=== PATIENT | female | born 1955 | race Caucasian/White ===

== ENCOUNTER → 2020-04-18 | Outpatient (CLI) | payer MEDICARE ==
[~2020-04-18] MED LIST: ASPI-496 PO; LORA10TA75 PO; RED600CA2 PO; Thyroid Med PO
[2020-04-18 13:41] LABS: BASOPHILS # (AUTO) 0.03 x10^3/uL (0-0.1); BASOPHILS % (AUTO) 1 % (0-1); EOSINOPHILS # (AUTO) 0.13 x10^3/uL (0-0.4); EOSINOPHILS % (AUTO) 2 % (1-7); LYMPHOCYTES % (AUTO) 28 % (22-44); MD NO; MEAN CORPUSCULAR HGB CONC 32.5 g/dL (32.4-35.8); MEAN CORPUSCULAR VOLUME 92.3 fL (80-100); MEAN PLATELET VOLUME 7.2 fL (7.4-10.4); MONOCYTES # (AUTO) 0.55 x10^3/uL (0.2-0.8); MONOCYTES % (AUTO) 8 % (2-9); NEUTROPHILS % (AUTO) 62 % (42-75); PLATELET COUNT 174 x10^3/uL (130-400); RED CELL DISTRIBUTION WIDTH 14.6 % (9.6-15.2)
== END | disposition home or self-care (01) ==
LOC: STAR 12:46
PROVIDERS: ATTEND Obstetrics & Gynecology
DX: Z01.818 Encounter for other preprocedural examination (principal); Z11.59 Encounter for screening for other viral diseases; N81.2 Incomplete uterovaginal prolapse
CPT/HCPCS: 36415; 84703; 85025; 87635; 93005

== ENCOUNTER 2020-04-22 09:09 | Day surgery (SDC) | payer MEDICARE ==
[~2020-04-22] VITALS: Ht 163.8 cm; Wt 92.6 kg
[~2020-04-22 09:09] MED LIST changes: +BUPIVACAINE/PF-EPI 0.25% 1:200K ONE
[2020-04-22] MEDS ORDERED: LACTATED RINGERS 1,000 ML IV SCH (09:57)
[2020-04-22 09:59] VITALS: BP 138/84
[2020-04-22] MEDS ORDERED: CHLORHEXIDINE 15 ML UDC MM ONE (10:00)
[2020-04-22] MEDS ORDERED: MIDAZOLAM 1 MG/ML, 2ML ONE (10:10)
[2020-04-22] MEDS ORDERED: FENTANYL PF 250 MCG/5ML ONE (10:11)
[2020-04-22] MEDS ORDERED: PROPOFOL 10 MG/ML, 20ML ONE (10:12)
[2020-04-22] MEDS ORDERED: LIDOCAINE-MPF 2% ,5ML ONE (10:16)
[2020-04-22] MEDS ORDERED: DEXAMETHASONE 4 MG/ML, 1ML ONE ×2 (10:16)
[2020-04-22] MEDS ORDERED: ROCURONIUM 10MG/ML,5ML ONE (10:16)
[2020-04-22] MEDS ORDERED: ONDANSETRON 2MG/ML, 2ML ONE (10:17)
[2020-04-22] MEDS ORDERED: BUPIVACAINE/PF-EPI 0.25% 1:200K ONE (11:09)
[2020-04-22] MEDS ORDERED: FLUORESCEIN SODIUM 500 MG/5 ML ONE (11:15)
[2020-04-22] MEDS ORDERED: ESTROGENS CONJUGATED VAG CRM 0.625MG/1G, 30GM ONE (11:15)
[2020-04-22] MEDS ORDERED: BACITRACIN 50,000 UNIT ONE (11:16)
[2020-04-22] MEDS ORDERED: GENTAMICIN 80 MG/2 ML ONE (11:18)
[2020-04-22] MEDS ORDERED: VANCOMYCIN 1,000 MG ONE (11:18)
[2020-04-22] MEDS ORDERED: KETOROLAC 30 MG/1 ML ONE (11:29)
[2020-04-22] MEDS ORDERED: SUGAMMADEX 200 MG/2 ML IVPush ONE (11:29)
[2020-04-22] MEDS ORDERED: CEFAZOLIN 1,000 MG ONE (11:29)
[2020-04-22] MEDS ORDERED: FENTANYL PF 100 MCG/2ML IV PRN (12:00)
[2020-04-22] MEDS ORDERED: OXYcodone 5 MG/5 ML ORAL.SOL UDC PO PRN (12:00)
[2020-04-22] MEDS ORDERED: ACETAMINOPHEN 325 MG TABLET PO PRN (12:00)
[2020-04-22] MEDS ORDERED: HYDROmorphone 1 MG/ML, 1ML INJ IVPush PRN (12:00)
[2020-04-22] MEDS ORDERED: ONDANSETRON 2MG/ML, 2ML IVPush PRN (12:00)
[2020-04-22] MEDS ORDERED: PROMETHAZINE 25 MG/ML, 1ML IVPush PRN (12:00)
[2020-04-22] MEDS ORDERED: MEPERIDINE/PF 25MG/0.5ML IVPush PRN (12:00)
[2020-04-22] MEDS ORDERED: DIAZEPAM 5 MG/ML, 2ML IVPush PRN (12:00)
[2020-04-22] MEDS ORDERED: FUROSEMIDE 20 MG/2 ML ONE (14:20)
[2020-04-22] MEDS ORDERED: OXYcodone 5 MG/5 ML ORAL.SOL UDC ONE (15:07)
== END 2020-04-22 18:10 | disposition home or self-care (01) ==
LOC: OUT 09:09
PROVIDERS: ATTEND Obstetrics & Gynecology
DX: N81.2 Incomplete uterovaginal prolapse (principal); D25.9 Leiomyoma of uterus, unspecified; N73.6 Female pelvic peritoneal adhesions (postinfective); N88.8 Other specified noninflammatory disorders of cervix uteri; N87.9 Dysplasia of cervix uteri, unspecified; N80.0 Endometriosis of uterus; E03.9 Hypothyroidism, unspecified; Z79.890 Hormone replacement therapy
CPT/HCPCS: 57260; 58552; 88305; J0690; J1100; J1885; J1940; J2250; J2405; J2704; J3010; J7120; 36415; 87635; J3370; J1580